=== PATIENT | male | born 2000 | race Asian ===

== ENCOUNTER 2024-05-11 22:50 | Emergency (ER) | payer OTHER, SELFPAY ==
[2024-05-11 22:53] VITALS: BP 119/77; PULSE 99; RESP 18; TEMP 36.9; O2SAT 96
[2024-05-11 23:02] VITALS: BMI 30.9
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
[2024-05-11] MEDS: DIPHTH,PERTUSS(ACELL),TET VAC 0.5 ML VIAL IMi (23:53)
[2024-05-11] MEDS: LIDOCAINE HCL 1% 20 ML VIAL INFL (23:54)
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
[2024-05-12 04:31] VITALS: RESP 18
== END 2024-05-12 04:32 | disposition home or self-care (01) ==
PROVIDERS: Emergency Provider Emergency Medicine
DX: S61.412A Laceration without foreign body of left hand, initial encounter (principal); S19.9XXA Unspecified injury of neck, initial encounter; S09.90XA Unspecified injury of head, initial encounter; V89.2XXA Person injured in unspecified motor-vehicle accident, traffic, initial encounter; Z23 Encounter for immunization
CPT/HCPCS: 12002; 70450; 72125; 73130; 90471; 90715; 99284; J3490

== ENCOUNTER 2025-03-05 19:02 | Emergency (ER) | payer MEDICAID, SELFPAY ==
[2025-03-05 19:03] VITALS: BMI 29.2
[2025-03-05 19:28] VITALS: BP 119/78; PULSE 128; RESP 20; TEMP 39.5; O2SAT 96
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
[2025-03-05 19:56] VITALS: TEMP 39.5
[2025-03-05] MEDS: ONDANSETRON ODT 4 MG TABRAP PO (19:56)
[2025-03-05] MEDS: ACETAMINOPHEN 500 MG TABLET 1000 MG PO (19:56)
[2025-03-05] MEDS: KETOROLAC INJ 60 MG/2 ML VIAL 30 MG IM (19:56)
[2025-03-05 20:04] LABS: Basophils # (Auto) 0.0 Thou/mm3 (0.0-0.2); Basophils % (Auto) 0 % (0-2.5); Eosinophils # (Auto) 0.0 Thou/mm3 (0.0-0.5); Eosinophils % (Auto) 0 % (0-10); Hematocrit 46.0 % (41.0-53.0); Hemoglobin 15.4 g/dL (13.5-16.0); Immature Granulocytes Auto 0.04 Thou/mm3 (0.00-0.00); Lymphocytes # (Auto) 0.9 Thou/mm3 (1.0-4.8); Lymphocytes % (Auto) 7 % (10-50); Mean Corpuscular HGB Conc 33.5 g/dl (31.0-37.0); Mean Corpuscular Hemoglobin 28.9 pg (25.0-35.0); Mean Corpuscular Volume 87 fL (80-100); Monocytes # (Auto) 1.4 Thou/mm3 (0.0-0.8); Monocytes % (Auto) 12 % (0-12); Neutrophils # (Auto) 9.7 Thou/mm3 (1.8-7.7); Neutrophils % (Auto) 80 % (37-80); Nucleated Red Blood Cell # 0.00 Thou/mm3 (0.00-0.00); Nucleated Red Blood Cell % 0 /100 WBC (0); Platelet Count 250 Thou/mm3 (140-440); RDW Standard Deviation 38.5 fL (35.1-43.9); Red Blood Count 5.32 Miln/mm3 (4.50-5.90); White Blood Count 12.1 Thou/mm3 (3.8-10.6)
[2025-03-05 20:05] LABS: Collection Type, Urine Clean Catch; Squamous Epithelial Cell,Urine 0 /hpf (0-5)
[2025-03-05 20:06] LABS: Lactate (Lactic Acid) 1.5 mMol/L (0.4-2.0)
[2025-03-05] MEDS: SODIUM CHLORIDE 0.9% 1000 ML 1,000 ML 999 ML IV (20:06)
[2025-03-05 20:24] LABS: Alanine Aminotransferase 75 U/L (10-49); Albumin, Serum 5.0 gm/dL (3.5-5.0); Albumin/Globulin Ratio 1.9 (1.2-2.2); Alkaline Phosphatase 78 U/L (46-116); Anion Gap 10 (7-16); Aspartate Amino Transferase 34 U/L (0-34); BUN/Creatinine Ratio 12 Ratio (12-20); Bilirubin,Total 0.6 mg/dL (0.3-1.2); Blood Urea Nitrogen 12 mg/dL (9-23); Calcium 9.6 mg/dL (8.3-10.6); Calcium (Corrected) 9.6 mg/dL (8.5-10.1); Carbon Dioxide 26.5 mMol/L (20.0-31.0); Chloride 103 mMol/L (98-107); Creatinine (Component) 1.0 mg/dL (0.6-1.3); Estimated Creatinine Clearance 105.1 mL/min (>60); Globulin 2.7 gm/dL (2.3-3.5); Glucose 103 mg/dL (74-106); Osmolality,Calculated 277 (275-295); Potassium 4.0 mMol/L (3.4-5.1); Sodium 139 mMol/L (136-145); Total Protein 7.7 gm/dL (5.7-8.2); eGFR > 60 See Note
[2025-03-05 20:29] LABS: Bilirubin,Urine Negative (Negative); Blood,Urine Negative (Negative); Clarity,Urine Clear (Clear/Hazy); Color,Urine Lt-Yellow (Lt Yel-Yel); Glucose, Urine Negative (Negative); Ketones,Urine Negative (Negative); Leukocyte Esterase,Urine Negative (Negative); Nitrite,Urine Negative (Negative); PH,Urine 6.0 (5.0-7.0); Protein,Urine Negative (Neg - Trace); RBC,Urine 1 /hpf (0-3); Specific Gravity,Urine 1.026 (1.001-1.035); Urobilinogen,Urine Negative mg/dL (0.0-1.0); WBC,Urine < 1 /hpf (0-5)
[2025-03-05 20:37] LABS: Lipase 22 U/L (12-53)
[2025-03-05 21:05] LABS: Influenza A Ag Negative; Influenza B Ag Negative
[2025-03-05 21:20] VITALS: TEMP 36.8
[2025-03-05 21:21] VITALS: PULSE 98; TEMP 36.7
== END 2025-03-05 21:22 | disposition home or self-care (01) ==
PROVIDERS: Physician Assistant; Emergency Provider Emergency Medicine
DX: B34.9 Viral infection, unspecified (principal)
CPT/HCPCS: 36415; 80053; 81001; 83605; 83690; 85025; 87502; 87811; 96360; 96372; 99284; J1885; J7030; Q0162; A9270